=== PATIENT | female | born 1990 | race Caucasian/White ===

== ENCOUNTER 2020-10-24 02:55 | Emergency (ER) | payer OTHER ==
[~2020-10-24] VITALS: Ht 162.6 cm; Wt 90.7 kg
[2020-10-24 03:03] VITALS: BP 129/78
--- NOTE | 2020-10-24 03:05 | NUR ---
To ED bed 03.
[2020-10-24] MEDS ORDERED: ACETAMINOPHEN EXTRA STRENGTH 500 MG TAB PO ONE (03:10)
[2020-10-24] MEDS ORDERED: NACL 0.9% 1,000 ML IV ONE ×2 (03:25→03:30)
--- NOTE | 2020-10-24 03:25 | NUR ---
Dr. Sheets with pt for MSE.
--- NOTE | 2020-10-24 03:25 | NUR ---
see complete assessment.
[2020-10-24 03:34] LABS: APPEARANCE,URINE CLEAR (CLEAR); BILIRUBIN,URINE NEGATIVE (NEGATIVE); BLOOD, URINE TRACE-I (NEGATIVE); COLOR,URINE YELLOW (YELLOW); LEUKOCYTE ESTERASE ,URINE 1+ (NEGATIVE); NITRITE, URINE NEGATIVE (NEGATIVE); UGLUCOSE NEGATIVE (NEGATIVE)
[2020-10-24 03:40] LABS: HEMATOCRIT 37.1 % (36-48); HEMOGLOBIN 12.7 g/dL (12.0-16.0); MEAN CORPUSCULAR HEMOGLOBIN 32 pg (27-31); MEAN CORPUSCULAR HGB CONC 34 g/dL (33-37); MEAN CORPUSCULAR VOLUME 93.9 fL (80-94); PLATELET COUNT (AUTO) 201 K/uL (140-450); RED BLOOD CELL COUNT(AUTO) 3.96 MIL/uL (4.20-5.40); RED CELL DISTRIBUTION WIDTH 12.8 % (11.6-13.7); WHITE BLOOD COUNT (AUTO) 7.9 K/uL (4.8-10.8)
[2020-10-24 04:00] LABS: ALBUMIN 3.7 g/dL (3.4-5.0); ANION GAP 14.3 (8-16); CARBON DIOXIDE 25.5 mmol/L (21-32); CREATININE 0.7 mg/dL (0.6-1.3); POTASSIUM 3.8 mmol/L (3.5-5.1); TOTAL BILIRUBIN 2.2 mg/dL (0.0-1.0)
--- NOTE | 2020-10-24 04:08 | NUR ---
Pt remains in semi fowlers position laying down in bed. does not appear to be in any distress. a/o x 4, gcs 15.
[2020-10-24 04:10] LABS: LYMPHOCYTES % (MANUAL) 13 % (20-46); MONOCYTES % (MANUAL) 7 % (5-12)
[2020-10-24 04:12] LABS: RBC,URINE 0-5 /HPF (0-5); WBC,URINE 0-5 /HPF (0-5)
[2020-10-24] MEDS ORDERED: NACL 0.9% 500 ML IV ONE (04:40)
[2020-10-24 05:01] VITALS: BP 118/71
--- NOTE | 2020-10-24 05:01 | NUR ---
remains laying down in semi fowlers position. does not appear to be in any distress. a/o x4, gcs 15. VSS.
--- NOTE | 2020-10-24 06:28 | NUR ---
Patient discharged with v/s stable. Written and verbal after care instructions given and explained. Patient verbalized understanding. Ambulatory with steady gait. All questions addressed prior to discharge. Advised to follow up with PMD.
[2020-10-24] MEDS ORDERED: CIPR250T3 PO (14:34)
[2020-10-24] MEDS ORDERED: TRAM50TA3 PO (14:34)
[2020-10-24] MEDS ORDERED: ONDA4TAB PO (14:34)
== END 2020-10-24 06:28 | disposition home or self-care (01) ==
LOC: MED 02:55
DX: R10.9 Unspecified abdominal pain (principal); R50.9 Fever, unspecified; Z20.822 Contact with and (suspected) exposure to COVID-19
CPT/HCPCS: 36415; 71045; 76705; 80053; 81001; 81025; 83690; 85025; 87086; 87426; 96360; 99285; J7030

== ENCOUNTER 2020-10-24 12:41 | Emergency (ER) | payer OTHER, SELFPAY ==
[~2020-10-24] VITALS: Ht 157.5 cm; Wt 90.7 kg
[2020-10-24 12:47] VITALS: BP 143/111
[2020-10-24] MEDS ORDERED: KETOROLAC 30 MG/ML VIAL IVP ONE (13:10)
[2020-10-24] MEDS ORDERED: NACL 0.9% 500 ML IV ONE (13:10)
[2020-10-24] MEDS ORDERED: ONDANSETRON 4 MG/2 ML VIAL IVP ONE (13:10)
[2020-10-24 13:35] LABS: BASOPHILS % (AUTO) 0.2 % (0.0-2.0); EOSINOPHILS % (AUTO) 0.1 % (0.0-4.0); HEMATOCRIT 34.4 % (36-48); HEMOGLOBIN 11.9 g/dL (12.0-16.0); LYMPHOCYTES # (AUTO) 0.5 K/uL (2.5-16.5); LYMPHOCYTES % (AUTO) 6.2 % (20.5-51.1); MEAN CORPUSCULAR HEMOGLOBIN 33 pg (27-31); MEAN CORPUSCULAR HGB CONC 35 g/dL (33-37); MEAN CORPUSCULAR VOLUME 94.4 fL (80-94); MONOCYTES # (AUTO) 0.4 K/uL (0.8-1.0); MONOCYTES % (AUTO) 4.6 % (1.7-9.3); NEUTROPHILS # (AUTO) 6.8 K/uL (1.8-7.7); NEUTROPHILS % (AUTO) 88.9 % (42.2-75.2); PLATELET COUNT (AUTO) 175 K/uL (140-450); RED BLOOD CELL COUNT(AUTO) 3.65 MIL/uL (4.20-5.40); RED CELL DISTRIBUTION WIDTH 12.6 % (11.6-13.7); WHITE BLOOD COUNT (AUTO) 7.6 K/uL (4.8-10.8)
[2020-10-24 13:39] LABS: CARBON DIOXIDE 22.9 mmol/L (21-32); CREATININE 0.9 mg/dL (0.6-1.3); POTASSIUM 3.9 mmol/L (3.5-5.1)
[2020-10-24 13:45] LABS: ALBUMIN 3.6 g/dL (3.4-5.0); TOTAL BILIRUBIN 2.9 mg/dL (0.0-1.0)
[2020-10-24] MEDS ORDERED: TRAM50TA3 PO (14:34)
[2020-10-24] MEDS ORDERED: CIPR250T3 PO (14:34)
[2020-10-24] MEDS ORDERED: ONDA4TAB PO (14:34)
[2020-10-24 14:45] VITALS: BP 143/111
== END 2020-10-24 14:45 | disposition home or self-care (01) ==
LOC: MED 12:41
DX: N12 Tubulo-interstitial nephritis, not specified as acute or chronic (principal); N20.0 Calculus of kidney; Z79.899 Other long term (current) drug therapy
CPT/HCPCS: 36415; 74176; 80053; 81002; 81025; 85025; 87040; 96361; 96374; 96375; 99284; J1885; J2405; J7030

== ENCOUNTER 2021-03-07 09:15 | Emergency (ER) | payer OTHER, SELFPAY ==
[~2021-03-07] VITALS: Ht 165.1 cm; Wt 72.6 kg
[~2021-03-07 09:15] MED LIST: CIPR250T3 PO; ONDA4TAB PO; TRAM50TA3 PO
[2021-03-07 09:38] VITALS: BP 125/73
[2021-03-07 10:38] LABS: BASOPHILS % (AUTO) 0.2 % (0.0-2.0); EOSINOPHILS # (AUTO) 0.1 K/uL (0-0.4); HEMATOCRIT 37.4 % (36-48); HEMOGLOBIN 12.8 g/dL (12.0-16.0); LYMPHOCYTES % (AUTO) 13.2 % (20.5-51.1); MEAN CORPUSCULAR HEMOGLOBIN 32 pg (27-31); MEAN CORPUSCULAR HGB CONC 34 g/dL (33-37); MEAN CORPUSCULAR VOLUME 93.9 fL (80-94); MONOCYTES # (AUTO) 0.5 K/uL (0.8-1.0); MONOCYTES % (AUTO) 6.7 % (1.7-9.3); NEUTROPHILS # (AUTO) 6.1 K/uL (1.8-7.7); NEUTROPHILS % (AUTO) 78.9 % (42.2-75.2); PLATELET COUNT (AUTO) 210 K/uL (140-450); RED BLOOD CELL COUNT(AUTO) 3.98 MIL/uL (4.20-5.40); RED CELL DISTRIBUTION WIDTH 12.7 % (11.6-13.7); WHITE BLOOD COUNT (AUTO) 7.7 K/uL (4.8-10.8)
[2021-03-07 10:52] LABS: ALBUMIN 3.8 g/dL (3.4-5.0); ANION GAP 11.3 (8-16); CARBON DIOXIDE 25.5 mmol/L (21-32); CREATININE 0.6 mg/dL (0.6-1.3); POTASSIUM 3.8 mmol/L (3.5-5.1)
[2021-03-07] MEDS ORDERED: ONDA-24 PO (12:03)
--- NOTE | 2021-03-07 12:34 | NUR ---
Written and verbal after care instructions given and explained in ER lobby. Patient alert, oriented and verbalized understanding of instructions. Ambulatory with steady gait. All questions addressed prior to discharge. ID band removed. Patient advised to follow up with PMD. Rx of Zofran given. Patient educated on indication of medication including possible reaction and side effects. Opportunity to ask questions provided and answered.
== END 2021-03-07 12:34 | disposition home or self-care (01) ==
LOC: MED 09:15
DX: K52.9 Noninfective gastroenteritis and colitis, unspecified (principal)
CPT/HCPCS: 80053; 81002; 81025; 83690; 85025; 99283

== ENCOUNTER 2021-03-15 16:05 | Emergency (ER) | payer OTHER, SELFPAY ==
[~2021-03-15] VITALS: Ht 157.5 cm; Wt 88.5 kg
[~2021-03-15 16:05] MED LIST changes: +ONDA-24 PO
[2021-03-15 16:16] VITALS: BP 130/70
--- NOTE | 2021-03-15 16:21 | NUR ---
TENT 2
--- NOTE | 2021-03-15 17:40 | NUR ---
IV established, 20 gauge to L. AC. Consent for CT signed.
--- NOTE | 2021-03-15 17:50 | NUR ---
Phleb at chairside
--- NOTE | 2021-03-15 17:52 | NUR ---
Pt to CT via wheelchair
[2021-03-15 18:09] LABS: BASOPHILS % (AUTO) 0.1 % (0.0-2.0); EOSINOPHILS # (AUTO) 0.1 K/uL (0-0.4); HEMATOCRIT 32.8 % (36-48); HEMOGLOBIN 11.4 g/dL (12.0-16.0); LYMPHOCYTES # (AUTO) 1.8 K/uL (2.5-16.5); LYMPHOCYTES % (AUTO) 31.5 % (20.5-51.1); MEAN CORPUSCULAR HEMOGLOBIN 32 pg (27-31); MEAN CORPUSCULAR HGB CONC 35 g/dL (33-37); MEAN CORPUSCULAR VOLUME 93.3 fL (80-94); MONOCYTES # (AUTO) 0.5 K/uL (0.8-1.0); MONOCYTES % (AUTO) 8.6 % (1.7-9.3); NEUTROPHILS # (AUTO) 3.4 K/uL (1.8-7.7); NEUTROPHILS % (AUTO) 58.8 % (42.2-75.2); PLATELET COUNT (AUTO) 255 K/uL (140-450); RED BLOOD CELL COUNT(AUTO) 3.52 MIL/uL (4.20-5.40); WHITE BLOOD COUNT (AUTO) 5.8 K/uL (4.8-10.8)
--- NOTE | 2021-03-15 18:13 | NUR ---
Pt back from CT
[2021-03-15] MEDS ORDERED: KETOROLAC 30 MG/ML VIAL IVP ONE (18:35)
[2021-03-15] MEDS ORDERED: NACL 0.9% 1,000 ML IV ONE (18:35)
[2021-03-15 18:42] LABS: ALBUMIN 3.6 g/dL (3.4-5.0); ANION GAP 9.6 (8-16); CREATININE 0.7 mg/dL (0.6-1.3); POTASSIUM 3.6 mmol/L (3.5-5.1); TOTAL BILIRUBIN 1.1 mg/dL (0.0-1.0)
[2021-03-15] MEDS ORDERED: cefTRIAXone 1,000 MG VIAL ONE (19:18)
[2021-03-15] MEDS ORDERED: CEPH-588 PO (19:50)
[2021-03-15 21:18] VITALS: BP 130/70
--- NOTE | 2021-03-16 20:25 | NUR ---
LATE ENTRY- 0.9% NS DISCONTINUED AT 2020
== END 2021-03-15 21:15 | disposition home or self-care (01) ==
LOC: MED 16:05
DX: N20.0 Calculus of kidney (principal)
CPT/HCPCS: 36415; 74177; 80053; 81002; 81025; 85025; 96361; 96365; 96375; 99285; J0696; J1885; J7030; Q9967

== ENCOUNTER 2021-04-07 19:57 | Emergency (ER) | payer MEDICAID, OTHER, SELFPAY ==
[~2021-04-07] VITALS: Ht 157.5 cm; Wt 86.2 kg
[~2021-04-07 19:57] MED LIST changes: +CEPH-588 PO
[2021-04-07 20:15] VITALS: BP 131/94
--- NOTE | 2021-04-07 20:18 | NUR ---
TO LOBBY A/W BED AMBULATORY
--- NOTE | 2021-04-07 21:45 | NUR ---
MARIJA by Dr. Braswell
== END 2021-04-07 21:45 | disposition left against medical advice (07) ==
LOC: MED 19:57
DX: H57.10 Ocular pain, unspecified eye (principal); Z53.21 Procedure and treatment not carried out due to patient leaving prior to being seen by health care provider

== ENCOUNTER 2022-08-10 10:46 | Emergency (ER) | payer MEDICAID, OTHER ==
[~2022-08-10] VITALS: Ht 157.5 cm; Wt 87.1 kg
[~2022-08-10 10:46] MED LIST changes: +ONDA-188 PO; -ONDA-24 PO
[2022-08-10 11:07] VITALS: BP 123/79
--- NOTE | 2022-08-10 11:08 | NUR ---
PT AMBULATED TO LOBBY
[2022-08-10] MEDS ORDERED: LID5T TP (12:18)
[2022-08-10] MEDS ORDERED: IBUP-2213 PO (12:18)
[2022-08-10] MEDS ORDERED: IBUPROFEN 600 MG TAB PO ONE (12:20)
--- NOTE | 2022-08-10 12:32 | NUR ---
PT PLACED IN RIGHT SHOULDER SLING
== END 2022-08-10 12:30 | disposition home or self-care (01) ==
LOC: MED 10:46
DX: M25.511 Pain in right shoulder (principal); Z79.899 Other long term (current) drug therapy; W19.XXXA Unspecified fall, initial encounter; Y93.89 Activity, other specified; Y92.89 Other specified places as the place of occurrence of the external cause; Y99.8 Other external cause status
CPT/HCPCS: 99283

== ENCOUNTER 2022-12-21 11:58 | Emergency (ER) | payer OTHER ==
[~2022-12-21] VITALS: Ht 157.5 cm; Wt 95.3 kg
[~2022-12-21 11:58] MED LIST changes: +IBUP-2213 PO; +LID5T TP
[2022-12-21 12:09] VITALS: BP 153/97
--- NOTE | 2022-12-21 12:15 | NUR ---
PT AMBULATED TO BED 8
--- NOTE | 2022-12-21 12:17 | NUR ---
32YO FEMALE PT C/O INCREASED DIZZINESS AND NAUSEA XTODAY. REPORTS INTIAL ONSET "ROOMS SPINNING" X1WEEK. MILD SWELLING NOTED IN L ARM. +NUMBING-LOSS OF SENSATION. CAP REFILL<3 THROUGHOUT. STATES PREVIOUS S/S THAT WENT UNTREATED. DENIES V/D, CHEST PAIN,SOB OR TAKING MEDICATION . PT AAOX4, HOB POSITIONED PER COMFORT HX: DENIES NKA
--- NOTE | 2022-12-21 12:40 | NUR ---
PA HODGE AT BEDSIDE EVALUATING PT
[2022-12-21] MEDS ORDERED: MECLIZINE 25 MG TAB PO ONE (12:50)
--- NOTE | 2022-12-21 13:05 | NUR ---
MD SMITH AT BEDSIDE FOR EVALUATION
--- NOTE | 2022-12-21 13:18 | NUR ---
pt taken to ct via concepción
[2022-12-21] MEDS ORDERED: ONDA-188 SL (14:38)
[2022-12-21] MEDS ORDERED: MECL-303 PO (14:38)
[2022-12-21 14:51] VITALS: BP 140/88
--- NOTE | 2022-12-21 14:51 | NUR ---
Patient discharged with v/s stable. Written and verbal after care instructions FOR DIZZINESS given and explained. Patient alert, oriented and verbalized understanding of instructions. Ambulatory with steady gait. All questions addressed prior to discharge. ID band removed. Patient advised to follow up with PMD. Rx of ANTIVERT AND ZOFRAN ODT given. Opportunity to ask questions provided and answered.
--- NOTE | 2022-12-21 15:00 | NUR ---
The patient's care was reviewed and supervised by Johanna Franklin RN.
== END 2022-12-21 14:51 | disposition home or self-care (01) ==
LOC: MED 11:58
DX: R42 Dizziness and giddiness (principal); R20.0 Anesthesia of skin; Z79.899 Other long term (current) drug therapy
CPT/HCPCS: 70450; 81025; 93005; 99284; J8597

== ENCOUNTER 2023-01-13 09:23 | Emergency (ER) | payer OTHER ==
[~2023-01-13] VITALS: Ht 162.6 cm; Wt 95.3 kg
[~2023-01-13 09:23] MED LIST changes: +MECL-303 PO; +ONDA-188 SL
[2023-01-13 09:27] VITALS: BP 126/90
[2023-01-13] MEDS ORDERED: IBUPROFEN 800 MG TAB PO ONE (11:20)
[2023-01-13] MEDS ORDERED: AMOXICILLIN 500 MG CAP PO ONE (11:20)
[2023-01-13] MEDS ORDERED: AMOX500C25 PO (11:20)
[2023-01-13 11:37] VITALS: BP 111/65
--- NOTE | 2023-01-13 11:38 | NUR ---
Patient discharged with v/s stable. Written and verbal after care instructions given and explained. Patient alert, oriented and verbalized understanding of instructions. Ambulatory with steady gait. All questions addressed prior to discharge. ID band removed. Patient advised to follow up with PMD. Rx of AMOXOCILLIN given. Patient educated on indication of medication including possible reaction and side effects. Opportunity to ask questions provided and answered.
== END 2023-01-13 11:37 | disposition home or self-care (01) ==
LOC: MED 09:23
DX: H66.92 Otitis media, unspecified, left ear (principal); R03.0 Elevated blood-pressure reading, without diagnosis of hypertension; R05.9 Cough, unspecified; R09.81 Nasal congestion; Z79.899 Other long term (current) drug therapy
CPT/HCPCS: 99283

== ENCOUNTER 2023-07-11 18:20 | Emergency (ER) | payer OTHER ==
[~2023-07-11] VITALS: Ht 157.5 cm; Wt 95.3 kg
[~2023-07-11 18:20] MED LIST changes: +AMOX500C25 PO
[2023-07-11 19:12] VITALS: BP 119/78; PULSE 91; RESP 18; TEMP 97.5; O2SAT 100
[2023-07-11] MEDS ORDERED: CEPH-588 PO (19:38)
[2023-07-11] MEDS ORDERED: IBUP-2213 PO (19:38)
[2023-07-11 19:46] VITALS: BP 120/80; PULSE 88; RESP 18; TEMP 98; O2SAT 100
== END 2023-07-11 19:46 | disposition home or self-care (01) ==
LOC: MED 18:20
DX: L60.0 Ingrowing nail (principal); Z79.899 Other long term (current) drug therapy
CPT/HCPCS: 99283